=== PATIENT | female | born 1985 | race Two or more races ===

== ENCOUNTER 2022-12-20 13:39 | Emergency (ER) | payer MEDICAID ==
[~2022-12-20] VITALS: Ht 147.3 cm; Wt 74.8 kg
--- NOTE | 2022-12-20 13:40 | NUR ---
WOKE UP WITH BLEEDING IN RIGHT ELBOW, THINKS THAT SHE MAY HAVE SCRATCHED IT. VITALS WITHIN NORMAL LIMITS.
[2022-12-20] MEDS ORDERED: LIDOCAINE /MPF 1% VIAL 5 ML VIAL ONE (14:07)
[2022-12-20] MEDS ORDERED: TRANEXAMIC ACID 1,000 MG/10 ML VIAL ONE (14:19)
[2022-12-20] MEDS ORDERED: TRANEXAMIC ACID 1,000 MG/10 ML VIAL IR ONE (14:30)
[2022-12-20] MEDS ORDERED: LIDOCAINE 1%-EPI 1:100,000 20 ML VIAL ONE (15:17)
--- NOTE | 2022-12-20 16:05 | NUR ---
Physical Therapy AttendantJoshua. Patient discharged to home in stable condition. Written and verbal after care instructions given. Patient verbalizes understanding of instruction.
[2022-12-20 16:08] VITALS: BP 109/72
== END 2022-12-20 16:09 | disposition home or self-care (01) ==
LOC: ER 13:50
DX: O26.893 Other specified pregnancy related conditions, third trimester (principal); S50.312A Abrasion of left elbow, initial encounter; X58.XXXA Exposure to other specified factors, initial encounter; Y93.89 Activity, other specified; Y92.89 Other specified places as the place of occurrence of the external cause; Y99.8 Other external cause status
CPT/HCPCS: 99283; J3490 ×2; A6403